=== PATIENT | female | born 1960 | race Asian ===

== ENCOUNTER 2022-06-12 05:45 | Day surgery (SDC) | payer MEDICAID ==
[~2022-06-12] VITALS: Ht 160 cm; Wt 49.9 kg
[2022-06-12] MEDS ORDERED: fentaNYL CITRATE/PF 100 MCG/2 ML AMP ONE (07:40)
[2022-06-12] MEDS ORDERED: MIDAZOLAM HCL 5 MG/5 ML VIAL ONE (07:40)
[2022-06-12 14:11] VITALS: BP_SYST 109
== END 2022-06-12 09:31 | disposition home or self-care (01) ==
LOC: SDS 05:45 → SMU 05:45 → SDS 09:31
PROVIDERS: ATTEND Internal Medicine
DX: R10.9 Unspecified abdominal pain (principal); K64.8 Other hemorrhoids; I10 Essential (primary) hypertension; E11.9 Type 2 diabetes mellitus without complications; Z79.899 Other long term (current) drug therapy; Z20.822 Contact with and (suspected) exposure to COVID-19
CPT/HCPCS: 36415; 45378; 99152; U0003; G0378; J2250; J3010